=== PATIENT | male | born 2000 | race Caucasian/White ===

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

== ENCOUNTER 2021-08-09 12:50 | Emergency (ER) | payer MEDICAID ==
[~2021-08-09] VITALS: Ht 180.3 cm; Wt 59.0 kg
[2021-08-09 14:19] VITALS: BP 99/65
== END 2021-08-09 16:16 | disposition home or self-care (01) ==
LOC: ER 12:50
DX: S91.114A Laceration without foreign body of right lesser toe(s) without damage to nail, initial encounter (principal); W22.01XA Walked into wall, initial encounter; Y93.89 Activity, other specified; Y92.89 Other specified places as the place of occurrence of the external cause; Y99.8 Other external cause status
CPT/HCPCS: 12001; 73630